=== PATIENT | male | born 1990 | race Caucasian/White ===

== ENCOUNTER 2024-06-13 18:06 | Emergency (ER) | payer OTHER ==
[2024-06-13 18:43] VITALS: O2SAT 100
[2024-06-13 19:01] LABS: BASOPHILS # (AUTO) 0.1 10^3/uL (0.0-0.1); BASOPHILS % (AUTO) 0.5 %; EOSINOPHILS # (AUTO) 0.1 10^3/uL (0.0-0.7); EOSINOPHILS % (AUTO) 0.5 %; HGB - HEMOGLOBIN 13.6 g/dL (14.0-18.0); LYMPHOCYTES # (AUTO) 3.2 10^3/uL (1.5-3.5); MEAN CORPUSCULAR HEMOGLOBIN 33.2 pg (27.0-31.0); MEAN CORPUSCULAR HGB CONC 34.9 g/dL (32.0-36.0); MEAN CORPUSCULAR VOLUME 95.1 fL (80.0-94.0); MONOCYTES # (AUTO) 0.7 10^3/uL (0.0-1.0); MONOCYTES % (AUTO) 7.8 %; NEUTROPHILS # (AUTO) 5.2 10^3/uL (1.5-6.6); PLT - PLATELET COUNT 251 10^3/uL (130-450); RED CELL DISTRIBUTION WIDTH 11.9 % (12.0-15.0); WHITE BLOOD COUNT 9.3 x10^3/uL (4.8-10.8)
--- NOTE | 2024-06-13 19:02 | ED Physician Documentation ---
History of Present Illness - Stated complaint Stated Complaint: CHEST PX - Chief complaint Chief Complaint: Cardiac - Additonal information Additional information: HPI 36-year-old male presents with chest pain. He has history of Jay fundoplication performed in [place] and cholecystectomy. He states for the last several days, he has intermittent substernal and left-sided burning in his chest and upper abdomen, without clear provoking or palliative factors other than deep breathing makes it slightly worse. No clear positional changes. Unclear if eating affects pain. No shortness of breath. No sudden or severe pain. No numbness or weakness. He denies nausea, vomiting, red or black in stool, substantial alcohol or NSAID use, though he smokes MJ and vapes. Pain does not worsen with exertion. No leg swelling or leg pain. No lightheadedness or syncope. No palpitations. He has no known history of cardiac disease, though notes early family history of cardiac disease in father. He currently has mild pain. He was sent from clinic, where a EKG was obtained that showed potential normal early repolarization pattern. He takes Depakote; no other medications. No acid blocking medications. ROS Constitutional: no fever, no chills Eyes: no visual disturbance, no discharge Ears, Nose, Mouth, Throat: no rhinorrhea, no sore throat Cardiovascular: + chest pain, no palpitations Respiratory: no cough, no shortness of breath Gastrointestinal: + abdominal pain, no vomiting, no diarrhea Genitourinary: no dysuria, no hematuria Musculoskeletal: no back pain, no neck stiffness Skin: no rash, no wound Neurological: no focal weakness, no focal numbness PD PAST MEDICAL HISTORY - Past Medical History Past Medical History: Yes Psych: Depression, Bipolar disorder - Past Surgical History Past Surgical History: Yes General: Cholecystectomy - Present Medications Home Medications: Ambulatory Orders Medication Instructions Recorded Confirmed Divalproex ER [Depakote ER] 500 mg PO BID 06/13/24 06/13/24 Pantoprazole [Protonix] 40 mg PO DAILY 14 Days #14 tablet 06/13/24 - Allergies Allergies/Adverse Reactions: Allergies Allergy/AdvReac Type Severity Reaction Status Date / Time No Known Drug Allergies Allergy Verified 06/13/24 18:39 - Social History Does the pt smoke?: No Smoking Status: Former smoker Does the pt drink ETOH?: Yes Does the pt have substance abuse?: No Substance Use and Type: Marijuana PD ED PE NORMAL - Free text exam Free text exam: Const: no acute distress, non toxic appearing; calm, conversant, pleasant Eyes: PERRLA, EOMI ENT: mucous membranes moist Neck: supple, non-tender Resp: no respiratory distress, clear to auscultation bilaterally Card: regular rate and rhythm, no murmurs Abd: mild epigastric tenderness, no other tenderness, negative Denton's sign, no rigidity or rebound or guarding Back: no T or L spine tenderness, no CVA tenderness bilaterally Extrem: no deformities, no swelling bilateral lower extremities, 2+ distal pulses all extremities Neuro: ANOx4, painter plate grossly intact, grossly intact sensation and strength all extremities Skin: no rash, warm and dry Results - Vitals Vitals: Vital Signs - 24 hr 06/13/24 06/13/24 18:32 20:39 Temperature 37.3 C Heart Rate 70 63 Respiratory 18 14 Rate Blood Pressure 123/80 123/68 O2 Saturation 100 100 Oxygen O2 Source Room air - EKG (time done) EKG EKG releavant findings:: EKG personally interpreted by author of this note. Relevant findings are: Computer interpretation: Disagree with computer (EKG NSR without acute ischemia or immediately concerning interval prolongation on my review. Note ST elevation pattern is consistent with benign early repolarization. I compared EKG in the ER with EKG sent from clinic as well, and they are similar.) - Labs Labs: Laboratory Tests 06/13/24 06/13/24 06/13/24 18:57 18:57 20:53 WBC 9.3 RBC 4.10 L Hgb 13.6 L Hct 39.0 L MCV 95.1 H MCH 33.2 H MCHC 34.9 RDW 11.9 L Plt Count 251 MPV 9.0 Neut # (Auto) 5.2 Lymph # (Auto) 3.2 Banner # (Auto) 0.7 Eos # (Auto) 0.1 Baso # (Auto) 0.1 Absolute Nucleated RBC 0.00 Nucleated RBC % 0.0 Sodium 137 Potassium 3.6 Chloride 104 Carbon Dioxide 27 Anion Gap 6.0 BUN 9 Creatinine 0.6 Estimated GFR (MDRD) 153 Glucose 90 Calcium 9.6 Total Bilirubin 0.8 AST 19 ALT 13 Alkaline Phosphatase 39 L Troponin I High Sens < 2.3 L < 2.3 L Total Protein 6.8 Albumin 4.5 Globulin 2.3 Albumin/Globulin Ratio 2.0 Lipase 15 - Rads (name of study) chest xr Relevant Findings:: EMP independent interpretation of test (CXR without focal opacity or pneumothorax per my independent review) PD Medical Decision Making - ED course ED course: This patients presentation is most suggestive of acid reflux, PUD, esophagitis, pancreatitis in a patient with history of Jay fundoplication and cholecystectomy. He has no exertional chest pain, with history arguing against ACS; with his family history, however, I am obtaining serial EKGs and troponins. In addition, while he notes mildly pleuritic pain, this presentation of intermittent chest pain over several days with no SOB is not consistent with PE. He is also PERC negative. This is not consistent with aortic dissection in this fully neurovascularly intact, overall comfortable patient with intermittent symptoms. This is not consistent with Boerhaave's or PTX or tamponade. I am obtaining EKG, troponin, CBC, CMP, lipase, CXR. I am giving pantoprazole and GI cocktail and will reassess. EKG shows SHERINE as discussed. CBC with mild anemia, no recent for comparison, no leukocytosis or throm bocytopenia. CMP grossly reassuring. Initial high sensitivity troponin negative, reassuring. Lipase reassuring. Radiology agrees with my review of CXR, stating no acute abnormalities. Repeat EKG similar morphology to prior, NSR without acute ischemia or immediately concerning interval prolongation. Repeat troponin: reassuring. Response to treatment: pain improving. Patient comfortable. I also offered bentyl. Patient feeling well. HEART score is low, and ACS remains unlikely clincially. On review, most likely diagnosis is GI related such as esophagitis, gastritis, PUD. Results of work up today were discussed with the patient. Pantoprazole x14d prescribed and PCP resources given. Patient ambulatory and tolerating PO. Repeat exams and vital signs reassuring. Patient questions answered and plan reviewed. Strong return precautions given. Patient discharged. Departure - Departure Disposition: 01 Home, Self Care Clinical Impression: Chest pain Condition: Good Instructions: ED Chest Pain O Prescriptions: Pantoprazole [Protonix] 40 mg PO DAILY 14 Days #14 tablet Comments: It was a pleasure taking care of you today. It is important to fully read and understand the below. Please ask us if you have any questions. We think the most likely cause of your pain may be gastrointestinal related. Please take pantoprazole daily as discussed. Please see a primary doctor within 3-5 days to discuss further care, such as referral to Gastroenterology. No tests or assessments are perfect, and your condition could private branch exchange repairer time. If your symptoms change or worsen, it is very important you immediately seek medical care. If you have any new or worsening pain, bleeding, shortness of breath, fever, vomiting, confusion, numbness, weakness, or anything else that concerns you, please immediately seek medical care. If you have been prescribed any medications: please read the drug package inserts on how to properly use the medication and any potential side effects. If you had labs (blood tests) or imaging (CT scan or x-rays) done during your visit: please follow up on the results of these with your primary care doctor, as discussed. In addition, please know the results we received today may be preliminary. Our usual practice is to follow up on tests within a few days of a patient's discharge from the Emergency Department and notify you of any changes. These may lead to changes to your treatment plan. However, the best way to obtain and interpret these test results is through your Primary Care Provider. If you need to update your contact information, please stop by the front end specialist and alert the Registration personnel before you leave the Emergency Department. Thank you for the opportunity to participate in your healthcare. We are always here and happy to see you in the future. Forms: PCP List
--- NOTE | 2024-06-13 19:02 | XRAY Report ---
PROCEDURE: Chest 1V INDICATIONS: Chest pain TECHNIQUE: One view of the chest was acquired. COMPARISON: None. FINDINGS: Surgical changes and devices: None. Lungs and pleura: No dense consolidation or pleural effusion Mediastinum: Normal heart size Bones and chest wall: Unremarkable IMPRESSION: No acute radiographic abnormality on this limited single view study Reviewed by: Edwar Moseley MD on 06/13/2024 7:00 PM PDT Approved by: Edwar Moseley MD on 06/13/2024 7:00 PM PDT Station ID: [id number]
[2024-06-13 19:17] LABS: ALBUMIN 4.5 g/dL (3.2-5.5); ALKALINE PHOSPHATASE 39 IU/L (42-121); ALT ALANINE AMINOTRANSFERASE 13 IU/L (10-60); AST ASPARTATE AMINOTRANSFERASE 19 IU/L (10-42); BILIRUBIN,TOTAL 0.8 mg/dL (0.2-1.0); BUN - BLOOD UREA NITROGEN 9 mg/dL (6-20); CALCIUM 9.6 mg/dL (8.5-10.3); CARBON DIOXIDE - CO2 27 mmol/L (21-32); CHLORIDE 104 mmol/L (101-111); CREATININE 0.6 mg/dL (0.6-1.3); GFR - MDRD 153 (>89); GLUCOSE 90 mg/dL (74-104); LIPASE 15 U/L (11-82); POTASSIUM 3.6 mmol/L (3.5-4.5); SODIUM 137 mmol/L (135-145); TOTAL PROTEIN 6.8 g/dL (6.4-8.9)
[2024-06-13 19:23] LABS: TROPONIN I HIGH SENSITIVITY < 2.3 ng/L (2.3-19.7)
[2024-06-13] MEDS: PANTOPRAZOLE 40 MG VIAL IV ONE (19:26)
[2024-06-13] MEDS: GI COCKTAIL 120 ML BOTTLE PO ONE (19:26)
[2024-06-13] MEDS: MAG HYDROX/AL HYDROX/SIMETH 30 ML UDC PO STA (19:28)
[2024-06-13] MEDS: LIDOCAINE VISCOUS 2% 15 ML UDC MM STA (19:28)
[2024-06-13] MEDS: DICYCLOMINE 10 MG CAPSULE PO STA (21:27)
[2024-06-13 21:56] VITALS: BP 123/68
== END 2024-06-13 21:40 | disposition home or self-care (01) ==
LOC: ED 18:06
DX: R07.9 Chest pain, unspecified (principal); Z87.891 Personal history of nicotine dependence
CPT/HCPCS: 36415; 71045; 80053; 83690; 84484; 85025; 93005; 96374; 99284; A9270